=== PATIENT | male | born 1945 | race American Indian/Alaskan Native ===

== ENCOUNTER 2017-07-28 12:21 | Emergency (ER) | payer MEDICARE ==
[2017-07-28] MEDS ORDERED: ASPIRIN PO ONE (13:17)
[2017-07-28 13:47] LABS: Basophils % (Auto) 0.6 % (0.0-1.8); Eosinophils % (Auto) 0.6 % (0.0-4.3); Hematocrit 38.1 % (35.5-45.6); Hemoglobin 12.8 gm/dl (11.8-15.2); Lymphocytes # (Auto) 0.9 K/mm3 (1.2-5.4); Lymphocytes % (Auto) 19.9 % (13.4-35.0); Mean Corpuscular HGB Conc 34 % (32-34); Mean Corpuscular Hemoglobin 33 pg (28-32); Mean Corpuscular Volume 97 fl (84-94); Monocytes # (Auto) 0.5 K/mm3 (0.0-0.8); Monocytes % (Auto) 10.8 % (0.0-7.3); Platelet Count 152 K/mm3 (140-440); Red Blood Count 3.94 M/mm3 (3.65-5.03); Red Cell Distribution Width 12.7 % (13.2-15.2)
[2017-07-28 14:07] LABS: BUN/Creatinine Ratio 10; Blood Urea Nitrogen 10 mg/dL (9-20); Calcium 9.1 mg/dL (8.4-10.2); Hemolysis Index 6
--- NOTE | 2017-07-28 15:12 | Cat Scan Report ---
FINAL REPORT EXAM: CT HEAD/BRAIN WO CON HISTORY: headache, nosebleed TECHNIQUE: CT of the head was performed. No intravenous contrast was administered. PRIORS: None. FINDINGS: There is no evidence of intracranial hemorrhage. There is no edema, mass effect or midline shift. There are no abnormal extra-axial fluid collections. The ventricles are appropriate for brain volume. There is no skull fracture seen. The visualized aspects of the sinuses are clear. IMPRESSION: There is no acute intracranial abnormality identified.
--- NOTE | 2017-07-28 16:56 | Emergency Department Report ---
HPI - General Chief Complaint: Nosebleed Time Seen by Provider: 07/28/17 14:27 - HPI HPI: 72-year-old -[place] female presents to ER with nosebleed that has since resolved. He states that his nose bled for about 15 minutes then with pressure the blood stopped. Patient has a history of high blood pressure, states he has been compliant with his medications but blood pressure has been running high anyway. ED Past Medical Hx - Past Medical History Previous Medical History?: Yes Hx Hypertension: Yes - Surgical History Past Surgical History?: No - Social History Smoking Status: Unknown if ever smoked Substance Use Type: None - Medications Home Medications: Home Medications Medication Instructions Recorded Confirmed Last Taken Type cloNIDine [Catapres] 0.1 mg PO BID #60 tablet 07/28/17 Unknown Rx ED Review of Systems ROS: Stated complaint: NOSE BLEED/HTN Other details as noted in HPI Constitutional: no symptoms reported ENT: epistaxis Cardiovascular: chest pain Gastrointestinal: denies: abdominal pain, nausea, vomiting Neurological: denies: headache, weakness Physical Exam - Physical Exam Vital Signs: Vital Signs 07/28/17 07/28/17 07/28/17 13:00 13:07 13:15 Temperature 97.9 F Pulse Rate 87 73 77 Respiratory 16 10 L 15 Rate Blood Pressure 189/102 Blood Pressure 203/112 [Left] O2 Sat by Pulse 99 96 Oximetry 07/28/17 07/28/17 07/28/17 13:30 13:45 13:56 Temperature 98.4 F Pulse Rate 77 71 Respiratory 17 7 L Rate Blood Pressure 196/98 180/92 Blood Pressure [Left] O2 Sat by Pulse 94 95 Oximetry 07/28/17 07/28/17 07/28/17 14:00 14:15 15:15 Temperature Pulse Rate 84 86 Respiratory 17 15 Rate Blood Pressure 179/97 180/98 176/84 Blood Pressure [Left] O2 Sat by Pulse 95 95 Oximetry 07/28/17 07/28/17 07/28/17 15:31 15:45 16:00 Temperature Pulse Rate Respiratory Rate Blood Pressure 219/121 185/103 200/104 Blood Pressure [Left] O2 Sat by Pulse Oximetry 07/28/17 07/28/17 07/28/17 16:15 16:30 16:45 Temperature Pulse Rate Respiratory Rate Blood Pressure 217/111 217/103 192/99 Blood Pressure [Left] O2 Sat by Pulse Oximetry Physical Exam: - Physical Exam Physical Exam: - General Limitations: No Limitations General appearance: alert, in no apparent distress, obese - Head Head exam: Present: atraumatic, normocephalic - Eye Eye exam: Present: normal appearance - ENT ENT exam: Present: mucous membranes moist, dried blood in right nostril - Neck Neck exam: Present: normal inspection - Respiratory Respiratory exam: Present: normal lung sounds bilaterally. Absent: respiratory distress - Cardiovascular Cardiovascular Exam: Present: normal rhythm, tachycardia. Absent: systolic murmur, diastolic murmur, rubs, gallop - GI/Abdominal GI/Abdominal exam: Present: soft, normal bowel sounds - Extremities Exam Extremities exam: Present: normal inspection - Back Exam Back exam: Present: normal inspection - Neurological Exam Neurological exam: Present: alert, oriented X3 - Psychiatric Psychiatric exam: normal affect and mood - Skin Skin exam: Present: warm, dry, intact, normal color. Absent: rash ED Course Vital Signs 07/28/17 07/28/17 07/28/17 13:00 13:07 13:15 Temperature 97.9 F Pulse Rate 87 73 77 Respiratory 16 10 L 15 Rate Blood Pressure 189/102 Blood Pressure 203/112 [Left] O2 Sat by Pulse 99 96 Oximetry 07/28/17 07/28/17 07/28/17 13:30 13:45 13:56 Temperature 98.4 F Pulse Rate 77 71 Respiratory 17 7 L Rate Blood Pressure 196/98 180/92 Blood Pressure [Left] O2 Sat by Pulse 94 95 Oximetry 07/28/17 07/28/17 07/28/17 14:00 14:15 15:15 Temperature Pulse Rate 84 86 Respiratory 17 15 Rate Blood Pressure 179/97 180/98 176/84 Blood Pressure [Left] O2 Sat by Pulse 95 95 Oximetry 07/28/17 07/28/17 07/28/17 15:31 15:45 16:00 Temperature Pulse Rate Respiratory Rate Blood Pressure 219/121 185/103 200/104 Blood Pressure [Left] O2 Sat by Pulse Oximetry 07/28/17 07/28/17 07/28/17 16:15 16:30 16:45 Temperature Pulse Rate Respiratory Rate Blood Pressure 217/111 217/103 192/99 Blood Pressure [Left] O2 Sat by Pulse Oximetry ED Medical Decision Making - Lab Data Result diagrams: 07/28/17 13:37 07/28/17 13:37 Critical care attestation.: If time is entered above; I have spent that time in minutes in the direct care of this critically ill patient, excluding procedure time. ED Disposition Clinical Impression: Acute anterior epistaxis Hypertension Qualifiers: Hypertension type: essential hypertension Qualified Code(s): I10 - Essential ( primary) hypertension Disposition: TO HOME OR SELFCARE Is pt being admited?: No Does the pt Need Aspirin: No Condition: Stable Instructions: Hypertension (ED) Prescriptions: cloNIDine [Catapres] 0.1 mg PO BID #60 tablet Referrals: PRIMARY CARE, [Primary Care Provider] - 3-5 Days
[2017-07-28] MEDS ORDERED: NORMODYNE IV ONE ×2 (18:00→18:01)
[2017-07-28] MEDS ORDERED: CATAPRES PO ONE (19:18)
[2017-07-28 19:42] VITALS: BP 185/97
== END 2017-07-28 21:45 | disposition home or self-care (01) ==
LOC: ED 12:21
DX: R04.0 Epistaxis (principal); I10 Essential (primary) hypertension
CPT/HCPCS: 36415; 70450; 80048; 82962; 84484; 85025; 93005; 93010; 96374